=== PATIENT | male | born 1960 | race Caucasian/White ===

== ENCOUNTER 2022-09-03 16:02 | Emergency (ER) | payer OTHER ==
[2022-09-03 16:16] VITALS: BP 113/81; PULSE 92; RESP 18; TEMP 97.6; BMI 24.4
[2022-09-03] MEDS ORDERED: LIDOCAINE HCL 2% JELLY (30 ML/TUBE) TP ONE (17:40)
[2022-09-03] MEDS ORDERED: LIDOCAINE HCL 2% JELLY 6 ML TP ONE (17:46)
== END 2022-09-03 20:09 | disposition home or self-care (01) ==
LOC: JER 16:02
DX: K62.89 Other specified diseases of anus and rectum (principal)
CPT/HCPCS: 99283-25